=== PATIENT | male | born 1965 | race Caucasian/White ===

== ENCOUNTER → 2019-03-31 13:52 | Outpatient (CLI) | payer BC, MEDICARE ==
[2010-02-06 11:32] VITALS: BMI 29.5
== END | disposition home or self-care (01) ==
LOC: D.NM 13:52
PROVIDERS: ATTEND Internal Medicine Gastroenterology
DX: R10.11 Right upper quadrant pain (principal); R12 Heartburn; R19.7 Diarrhea, unspecified; R11.2 Nausea with vomiting, unspecified

== ENCOUNTER → 2019-06-05 15:46 | Outpatient (CLI) | payer BC, MEDICARE ==
[2010-02-06 11:32] VITALS: BMI 29.5
[~2019-06-05 15:46] MED LIST: CARAFATE1 G PO; COZAAR25 MG PO; EFFEXOR XR150 MG PO; FLAGYL500 MG PO; FLOMAX0.4 MG PO; FLORAJEN3 CAPS460 MG PO; LEVAQUIN750 MG PO; NORVASC2.5 MG PO; OMEPRAZOLE20 M1 PO; RESTORIL15 MG PO; RESTORIL7.5 MG PO; SEROQUEL25 MG PO
[2019-06-08 13:21] VITALS: BMI 27.6
== END | disposition home or self-care (01) ==
LOC: D.CT 15:46
PROVIDERS: ATTEND Internal Medicine Gastroenterology
DX: K52.9 Noninfective gastroenteritis and colitis, unspecified (principal)

== ENCOUNTER 2019-06-07 15:38 | Inpatient (IN) | payer BC, MEDICARE ==
[~2019-06-07] VITALS: Ht 175.3 cm; Wt 84.8 kg
[2019-06-07] MEDS ORDERED: CARAFATE1 G PO (15:49)
[2019-06-07] MEDS ORDERED: OMEPRAZOLE20 M1 PO (15:49)
[2019-06-07] MEDS ORDERED: SEROQUEL25 MG PO (15:50)
[2019-06-07] MEDS ORDERED: COZAAR25 MG PO (15:50)
[2019-06-07] MEDS ORDERED: NORVASC2.5 MG PO (15:50)
[2019-06-07] MEDS ORDERED: RESTORIL7.5 MG PO (15:51)
[2019-06-07] MEDS ORDERED: FLOMAX0.4 MG PO (15:52)
[2019-06-07] MEDS ORDERED: EFFEXOR XR150 MG PO (15:53)
[2019-06-07] MEDS ORDERED: RESTORIL15 MG PO (15:54)
--- NOTE | 2019-06-07 16:14 | NUR ---
DR. LEYVA'S TOWER HOIST OPERATOR HERE TO SEE PT.
[2019-06-07 16:49] LABS: APPEARANCE CLEAR (CLEAR); BILIRUBIN NEGATIVE (NEGATIVE); COLOR YELLOW (YELLOW); GLUCOSE NEGATIVE (NEGATIVE); KETONE NEGATIVE (NEGATIVE); NITRITE NEGATIVE (NEGATIVE); PROTEIN NEGATIVE (NEGATIVE); SPECIFIC GRAVITY 1.015 (1.005-1.020); UROBILINOGEN NORMAL (NORMAL)
[2019-06-07 16:50] LABS: BACTERIA FEW /hpf (NEGATIVE); RED CELLS - URINE 0-5 /hpf (0-5); WHITE CELLS - URINE OCC /hpf (NEGATIVE)
[2019-06-07 17:03] LABS: BASOPHILS 0.4 % (0-2); HEMATOCRIT 42.3 % (42.0-54.0); HEMOGLOBIN 14.1 g/dL (13.5-17.5); IMMATURE GRANULOCYTES 0.1 % (0-5); LYMPHOCYTES 33.9 % (15-50); MCH 29.2 pg (26.0-34.0); MCHC 33.3 g/dL (31.0-37.0); MCV 87.6 fL (80.0-100.0); MEAN PLATELET VOLUME 10.3 fL (7.4-10.4); MONOCYTES 7.1 % (2-11); NEUTROPHILS 55.5 % (40-80); PLATELET COUNT 237 10x3/uL (130-400); RBC 4.83 10x6/uL (4.20-6.10); RDW 13.2 % (11.5-14.5); WBC 7.9 10x3/uL (4.8-10.8)
[2019-06-07 17:08] LABS: APTT 26.6 SECONDS (22.8-39.4); INR 1.03 (0.85-1.17)
--- NOTE | 2019-06-07 17:09 | NUR ---
ATTEMPED TO CALL REPORT AT EXT [phone] X 1. ON HOLD 5 MINS. WILL TRY AGAIN.
[2019-06-07 17:11] LABS: ALBUMIN 3.8 g/dL (3.4-5.0); ALKALINE PHOSPHATASE 90 U/L (46-116); ALT (SGPT) 20 U/L (10-68); AMYLASE - SERUM 71 U/L (25-115); BILIRUBIN - TOTAL 0.66 mg/dL (0.2-1.3); CALC OSMOLALITY 282 mosm/kg (275-300); CALCIUM 8.7 mg/dL (8.5-10.1); CARBON DIOXIDE 29.9 mmol/L (21.0-32.0); CHLORIDE - SERUM 105 mmol/L (98-107); CREATININE - SERUM 0.8 mg/dL (0.6-1.3); GLUCOSE 92 mg/dL (74-106); LIPASE 140 U/L (73-393); POTASSIUM - SERUM 3.6 mmol/L (3.5-5.1); PROTEIN - SERUM 7.2 g/dL (6.4-8.2); SODIUM 142 mmol/L (136-145); UREA NITROGEN 12 mg/dL (7-18); eGFR NON AFRICAN AMERICAN > 90 mL/min (90-120)
--- NOTE | 2019-06-07 17:19 | NUR ---
NURSE TIED UP, BUT RN, ROMULO TOOK REPORT AT 1719.
--- NOTE | 2019-06-07 17:30 | NUR ---
PT ARRIVES TO ROOM VIA WHEELCHAIR. PT IS AAO X 4. PT DENIES PRESENCE OF BLOOD IN STOOL. BS ACTIVE X 4. PT STATES THAT WHEN HE BURPS HE CAN "TASTE THE POOP". PT INFORMED OF NPO STATUS. PT VERBALIZES UNDERSTANDING. PT DENIES PRESENCE OF DYSPNEA/SOB/N/V/PAIN AT THIS TIME. PT TO HAVE BRING HOME CPAP. VANCOMYCIN INFUSING TO LEFT AC WITHOUT DIFFICULTY. PT DENIES FURTHER NEEDS. BED IS IN THE LOWEST POSITION. CALL LIGHT AND BEDSIDE TABLE ARE WITHIN REACH. SIDE RAILS X 2. WILL CONT TO MONITOR.
--- NOTE | 2019-06-07 17:35 | MORECARE ---
CASE MANAGEMENT DISCHARGE SUMMARY PATIENT: OSCAR MARROQUIN UNIT: [id number] ADM DATE: 06/07/19 AGE: 53 : 65 SEX: M ROOM/BED: D.2228 AUTHOR: RUPERT NELSON PHYSICIAN: REFERRING PHYSICIAN: FUNMILAYO FREGOSO MD DATE OF SERVICE: 06/07/19 Discharge Plan Patient Name: OSCAR MARROQUIN [facility] [facility] 1965 Planned Disposition: Home or Self Care Anticipated Discharge Date: 06/09/19 Discharge Date: Expected LOS: 2 Initial Reviewer: [email or web address] Initial Review Date: 06/07/2019 Generated: 06/07/19 6:35 pm DCPIA - Discharge Planning Initial Assessment Updated by [email or web address]: Annabel Salazar on 06/07/19 5:33 pm * Is the patient Alert and Oriented? Yes * How many steps to enter\exit or inside your home? * PCP Dr. Jean [facility] * [facility] * Preadmission Environment Home with Family * ADLs Independent * Equipment CPAP * List name and contact numbers for known caregivers / representatives who currently or will assist patient after discharge: Aura Marroquin - [facility] - [phone] * Verbal permission to speak to the caregivers and representatives has been obtained from the patient. Yes * Community resources currently utilized None * Additional services required to return to the preadmission environment? No * Can the patient safely return to the preadmission environment? Yes * Has this patient been hospitalized within the prior 30 days at any hospital? No Patient Name: OSCAR MARROQUIN Page [id number] at 1735 All edits/amendments must be made on the electronic document DICTATION DATE: 06/07/191734 PICKER OPERATOR: JAYDEN 06/07/191734 RPT#: [id number] UT DATE: STATUS: ADM IN [facility] [address] [place] [address] END OF REPORT
[2019-06-07 17:42] VITALS: BP 116/84; BMI 27.6
--- NOTE | 2019-06-07 17:43 | MORECARE ---
CASE MANAGEMENT DISCHARGE SUMMARY PATIENT: OSCAR MARROQUIN UNIT: [id number] ADM DATE: 06/07/19 AGE: 53 : 65 SEX: M ROOM/BED: D.2228 AUTHOR: OMARDOC PHYSICIAN: REFERRING PHYSICIAN: FUNMILAYO FREGOSO MD DATE OF SERVICE: 06/07/19 Discharge Plan Patient Name: OSCAR MARROQUIN Facility: [facility]:[place] : 1965 Planned Disposition: Home or Self Care Anticipated Discharge Date: 06/09/19 Discharge Date: Expected LOS: 2 Initial Reviewer: [email or web address] Initial Review Date: 06/07/2019 Generated: 06/07/19 6:42 pm DCP- Discharge Planning Updated by [email or web address]: Annabel Salazar on 06/07/19 4:[address] DC PLAN: Return home with his independently. ANTICIPATED DC NEEDS: Denied known dc needs. CM met with patient to complete initial dc planning assessment. CM educated patient on the CM role and verbal consent given by patient to complete assessment. CM verified patient's address, phone number, and emergency contact phone numbers. Patient lives at home independently with his . At discharge patient plans to return home and feels this is a safe discharge. CM discussed availability of home health, rehab services, and medical equipment. Patient denied known discharge needs at this time. Transportation provider at discharge will be his . CM will continue to follow and will assist as needed with dc plans/needs. Annabel Salazar RN, [facility] DCPIA - Discharge Planning Initial Assessment Updated by [email or web address]: Annabel Salazar on 06/07/19 5:33 pm * Is the patient Alert and Oriented? Yes * How many steps to enter\exit or inside your home? * PCP Dr. Jean [facility] * [facility] * Preadmission Environment Home with Family * ADLs Independent * Equipment CPAP * List name and contact numbers for known caregivers / representatives who currently or will assist patient after discharge: Aura Marroquin - Spouse - [phone] * Verbal permission to speak to the caregivers and representatives has been obtained from the patient. Yes * Community resources currently utilized None * Additional services required to return to the preadmission environment? No * Can the patient safely return to the preadmission environment? Yes * Has this patient been hospitalized within the prior 30 days at any hospital? No Last DP export: 06/07/19 4:35 Patient Name: OSCAR MARROQUIN Page [id number] at 1743 All edits/amendments must be made on the electronic document DICTATION DATE: 06/07/191741 INDUSTRIAL PHARMACIST: JAYDEN 06/07/191741 RPT#: [id number] DC DATE: STATUS: ADM IN [facility] [address] [place] [address] END OF REPORT
--- NOTE | 2019-06-07 20:00 | NUR ---
ALERTT SITTING UP IN BED, REPORT ABD PAIN 7 OUT OF 10, MORPHINE GIVEN ORDERED, SEE SHIFT ASSESSMENT, CALL LIGHT IN REACH
[2019-06-07 20:38] VITALS: BP 138/73
[2019-06-08 01:26] VITALS: BP 154/74
[2019-06-08 04:41] VITALS: BP 125/80
[2019-06-08 05:32] LABS: BASOPHILS 0.4 % (0-2); EOSINOPHILS 4.3 % (0-7); HEMATOCRIT 43.1 % (42.0-54.0); HEMOGLOBIN 14.2 g/dL (13.5-17.5); IMMATURE GRANULOCYTES 0.4 % (0-5); LYMPHOCYTES 32.5 % (15-50); MCH 29.2 pg (26.0-34.0); MCHC 32.9 g/dL (31.0-37.0); MCV 88.5 fL (80.0-100.0); MEAN PLATELET VOLUME 10.8 fL (7.4-10.4); MONOCYTES 7.6 % (2-11); NEUTROPHILS 54.8 % (40-80); PLATELET COUNT 234 10x3/uL (130-400); RBC 4.87 10x6/uL (4.20-6.10); RDW 13.3 % (11.5-14.5)
[2019-06-08 05:48] LABS: ALBUMIN 3.6 g/dL (3.4-5.0); ALKALINE PHOSPHATASE 87 U/L (46-116); ALT (SGPT) 18 U/L (10-68); BILIRUBIN - TOTAL 0.86 mg/dL (0.2-1.3); CALC OSMOLALITY 280 mosm/kg (275-300); CALCIUM 8.8 mg/dL (8.5-10.1); CARBON DIOXIDE 28.7 mmol/L (21.0-32.0); CHLORIDE - SERUM 106 mmol/L (98-107); CREATININE - SERUM 0.9 mg/dL (0.6-1.3); GLUCOSE 83 mg/dL (74-106); POTASSIUM - SERUM 4.1 mmol/L (3.5-5.1); SODIUM 142 mmol/L (136-145); UREA NITROGEN 10 mg/dL (7-18); eGFR NON AFRICAN AMERICAN > 90 mL/min (90-120)
--- NOTE | 2019-06-08 07:41 | NUR ---
PT IS RESTING IN BED WITH EYES OPEN. RESPIRATIONS ARE EVEN AND UNLABORED. PT IS AAO X 4. PIV TO LEFT AC INFUSING WITHOUT DIFFICULTY. PT DENIES PRESENCE OF N/V/PAIN AT THIS TIME. BS ACTIVE X 4. PT REPORTS TENDERNESS TO ABDOMEN UPON PALPATION. PT REPORTS THAT HE IS PASSING GAS WITHOUT DIFFICULTY/PAIN. BED IS IN THE LOWEST POSITION. CALL LIGHT AND BEDSIDE TABLE ARE WITHIN REACH. SIDE RAILS X 2. PT DENIES FURTHER NEEDS. WILL CONT TO MONITOR.
[2019-06-08 08:43] VITALS: BP 83/44
[2019-06-08 12:54] VITALS: BP 117/78
[2019-06-08 13:21] VITALS: Ht 175.3 cm; Wt 84.8 kg
--- NOTE | 2019-06-08 18:42 | NUR ---
IV DCD FROM LEFT AC WITH CATH TIP INTACT.IV RESITED TO RIGHT FOREARM X1 STICK USING ASEPTIC TECH,22G.
[2019-06-08 18:45] VITALS: BP 141/82
[2019-06-08 20:00] VITALS: BP 144/83
--- NOTE | 2019-06-08 20:00 | NUR ---
ALERT RESTING IN BED, REQUESTING PAIN MEDICATION, MORPHINE GIVEN ORDERED, SEE SHIFT ASSESSMENT, CALL ELVIN REAL
[2019-06-09 04:00] VITALS: BP 130/84
[2019-06-09 05:44] LABS: BASOPHILS 0.4 % (0-2); HEMOGLOBIN 14.2 g/dL (13.5-17.5); IMMATURE GRANULOCYTES 0.2 % (0-5); LYMPHOCYTES 25.2 % (15-50); MCV 87.9 fL (80.0-100.0); MEAN PLATELET VOLUME 10.6 fL (7.4-10.4); MONOCYTES 7.4 % (2-11); NEUTROPHILS 62.8 % (40-80); PLATELET COUNT 250 10x3/uL (130-400); RBC 4.89 10x6/uL (4.20-6.10); RDW 13.4 % (11.5-14.5); WBC 8.6 10x3/uL (4.8-10.8)
[2019-06-09 06:26] LABS: ALBUMIN 3.7 g/dL (3.4-5.0); ALKALINE PHOSPHATASE 87 U/L (46-116); ALT (SGPT) 20 U/L (10-68); BILIRUBIN - TOTAL 1.59 mg/dL (0.2-1.3); CALC OSMOLALITY 280 mosm/kg (275-300); CALCIUM 8.9 mg/dL (8.5-10.1); CHLORIDE - SERUM 106 mmol/L (98-107); CREATININE - SERUM 0.8 mg/dL (0.6-1.3); GLUCOSE 95 mg/dL (74-106); POTASSIUM - SERUM 3.6 mmol/L (3.5-5.1); PROTEIN - SERUM 6.8 g/dL (6.4-8.2); SODIUM 142 mmol/L (136-145); VANCOMYCIN - TROUGH 7.8 ug/mL (10.0-20.0); eGFR NON AFRICAN AMERICAN > 90 mL/min (90-120)
[2019-06-09 06:29] LABS: UREA NITROGEN 7 mg/dL (7-18)
[2019-06-09 08:47] VITALS: BP 149/88
--- NOTE | 2019-06-09 09:00 | NUR ---
ALERT AND ORIENTED X4. UP ADLIB WITH GENERALIZED ABDOMINAL PAIN. BOWEL SOUNDS NOTED X4 WITH GENERALIZED TENDRNESS ON PALPATION. NORCO GIVEN FOR PAIN AND EFFECTIVE. ENCOURAGED TO USE CALL LIGHT FOR ASSSIT. HRRR AND LUNGS CTA.
[2019-06-09 13:13] VITALS: BP 131/94
[2019-06-09 16:57] VITALS: BP 137/86
[2019-06-09 20:00] VITALS: BP 154/85
[2019-06-10] VITALS: BP 127/79
--- NOTE | 2019-06-10 01:50 | NUR ---
I have reviewed this patient and I concur with the Shift Assessment completed by the Licensed Practical Nurse today this shift.
[2019-06-10 04:00] VITALS: BP 136/61
[2019-06-10 05:16] LABS: BASOPHILS 0.3 % (0-2); EOSINOPHILS 5.5 % (0-7); HEMATOCRIT 41.4 % (42.0-54.0); HEMOGLOBIN 13.6 g/dL (13.5-17.5); IMMATURE GRANULOCYTES 0.1 % (0-5); LYMPHOCYTES 34.8 % (15-50); MCH 29.2 pg (26.0-34.0); MCHC 32.9 g/dL (31.0-37.0); MCV 88.8 fL (80.0-100.0); MEAN PLATELET VOLUME 10.6 fL (7.4-10.4); MONOCYTES 7.5 % (2-11); NEUTROPHILS 51.8 % (40-80); PLATELET COUNT 234 10x3/uL (130-400); RBC 4.66 10x6/uL (4.20-6.10); RDW 13.5 % (11.5-14.5); WBC 7.3 10x3/uL (4.8-10.8)
[2019-06-10 05:41] LABS: ALBUMIN 3.4 g/dL (3.4-5.0); ALKALINE PHOSPHATASE 80 U/L (46-116); ALT (SGPT) 16 U/L (10-68); BILIRUBIN - TOTAL 1.39 mg/dL (0.2-1.3); CALC OSMOLALITY 279 mosm/kg (275-300); CALCIUM 8.9 mg/dL (8.5-10.1); CARBON DIOXIDE 27.7 mmol/L (21.0-32.0); CHLORIDE - SERUM 107 mmol/L (98-107); CREATININE - SERUM 0.9 mg/dL (0.6-1.3); GLUCOSE 85 mg/dL (74-106); POTASSIUM - SERUM 3.4 mmol/L (3.5-5.1); PROTEIN - SERUM 6.6 g/dL (6.4-8.2); SODIUM 142 mmol/L (136-145); UREA NITROGEN 7 mg/dL (7-18); VANCOMYCIN - TROUGH 17.1 ug/mL (10.0-20.0); eGFR NON AFRICAN AMERICAN > 90 mL/min (90-120)
--- NOTE | 2019-06-10 08:00 | NUR ---
ALERT AND ORIENTED X4. ABDOMEN SOFT WITH GENERALIZED TENDERNESS WITH BS NOTED X4. LUNGS CTA AND HRRR. UP ADLIB AND HAD SHOWER THIS AM. IV TO RT. F/A INFUSING AT PRESCRIBED RATE. NORCO GIVEN FOR ABDOMINAL DISCOMFORT AND EFFECTIVE. ENCOURAGED TO USE CALL LIGHT FOR ASSIST.
[2019-06-10 08:28] VITALS: BP 134/86
[2019-06-10 13:15] VITALS: BP 137/86
[2019-06-10 16:36] VITALS: BP 133/79
[2019-06-10 20:22] VITALS: BP 138/84
[2019-06-11 00:21] VITALS: BP 123/72
--- NOTE | 2019-06-11 02:08 | NUR ---
PT RESTING IN BED. EYES CLOSED. NO SIGNS OF DISTRESS. BREATHING EVEN AND UNLABORED. IV SITE RT FA DRESSING CLEAN DRY AND INTACT. NO SIGNS OF INFECTION. SKIN CLEAN DRY AND INTACT. LUNG SOUNDS CLEAR. BOWEL SOUNDS ACTIVE. WILL CONTINUE PLAN OF CARE. CALL LIGHT IN REACH. BED LOWERED AND LOCKED. BED RAILS UPX2.
[2019-06-11 04:45] VITALS: BP 120/82
[2019-06-11 06:20] LABS: BASOPHILS 0.4 % (0-2); EOSINOPHILS 6.9 % (0-7); IMMATURE GRANULOCYTES 0.1 % (0-5); LYMPHOCYTES 31.8 % (15-50); MCH 28.9 pg (26.0-34.0); MCHC 32.6 g/dL (31.0-37.0); MCV 88.8 fL (80.0-100.0); MEAN PLATELET VOLUME 10.5 fL (7.4-10.4); MONOCYTES 8.2 % (2-11); NEUTROPHILS 52.6 % (40-80); PLATELET COUNT 243 10x3/uL (130-400); RBC 4.84 10x6/uL (4.20-6.10); RDW 13.3 % (11.5-14.5); WBC 7.2 10x3/uL (4.8-10.8)
[2019-06-11 06:33] LABS: ALBUMIN 3.5 g/dL (3.4-5.0); ALKALINE PHOSPHATASE 84 U/L (46-116); ALT (SGPT) 18 U/L (10-68); BILIRUBIN - TOTAL 0.93 mg/dL (0.2-1.3); CALC OSMOLALITY 279 mosm/kg (275-300); CARBON DIOXIDE 29.4 mmol/L (21.0-32.0); CHLORIDE - SERUM 106 mmol/L (98-107); GLUCOSE 95 mg/dL (74-106); POTASSIUM - SERUM 3.5 mmol/L (3.5-5.1); PROTEIN - SERUM 6.5 g/dL (6.4-8.2); SODIUM 142 mmol/L (136-145); eGFR NON AFRICAN AMERICAN 83 mL/min (90-120)
[2019-06-11 06:34] LABS: UREA NITROGEN 4 mg/dL (7-18)
[2019-06-11 08:25] VITALS: BP 117/86
--- NOTE | 2019-06-11 09:16 | NUR ---
ALERT AND ORIENTED X4 ABDOMEN SOFT AND NONTENDER WITH BOWEL SOUNDS X4. PT HAD LOOSE BM WITH BROWN STOOL NOTED W/O OCCULT BLOOD ODOR. DENIES ANY PAIN OR DISCOMFORT THIS AM. LUNGS CTA AND ENCOURAGED AMBULATION. INSTRUCTED TO JOHN CALL LIGHT FOR ASISST.
[2019-06-11 12:38] VITALS: BP 133/79
[2019-06-11] MEDS ORDERED: FLORAJEN3 CAPS460 MG PO (13:21)
[2019-06-11] MEDS ORDERED: LEVAQUIN750 MG PO (13:21)
[2019-06-11] MEDS ORDERED: FLAGYL500 MG PO (13:22)
--- NOTE | 2019-06-11 15:44 | NUR ---
IV DISCONTINUED AND VERBALIZED UNDERSTANDING OF DISCHARGE INSTRUCTIONS. STABLE AT TIME OF DEPARTURE.
[2019-06-11 16:09] VITALS: BP 133/90
--- NOTE | 2019-06-13 08:10 | MORECARE ---
CASE MANAGEMENT DISCHARGE SUMMARY PATIENT: OSCAR MARROQUIN UNIT: [id number] ADM DATE: 06/07/19 AGE: 53 : 65 SEX: M ROOM/BED: D.2228 AUTHOR: OMARDOC PHYSICIAN: REFERRING PHYSICIAN: FUNMILAYO FREGOSO MD DATE OF SERVICE: 06/13/19 Discharge Plan Patient Name: OSCAR MARROQUIN Facility: [facility]:[place] : 1965 Planned Disposition: Home or Self Care Anticipated Discharge Date: 06/09/19 Discharge Date: 06/11/2019 Expected LOS: 2 Initial Reviewer: [email or web address] Initial Review Date: 06/07/2019 Generated: 06/13/19 9:09 am DCP- Discharge Planning Updated by [email or web address]: Annabel Salazar on 06/07/19 4:[address] DC PLAN: Return home with his independently. ANTICIPATED DC NEEDS: Denied known dc needs. CM met with patient to complete initial dc planning assessment. CM educated patient on the CM role and verbal consent given by patient to complete assessment. CM verified patient's address, phone number, and emergency contact phone numbers. Patient lives at home independently with his . At discharge patient plans to return home and feels this is a safe discharge. CM discussed availability of home health, rehab services, and medical equipment. Patient denied known discharge needs at this time. Transportation provider at discharge will be his . CM will continue to follow and will assist as needed with dc plans/needs. Annabel Salazar RN, [facility] DCPIA - Discharge Planning Initial Assessment Updated by [email or web address]: Annabel Salazar on 06/07/19 5:33 pm * Is the patient Alert and Oriented? Yes * How many steps to enter\exit or inside your home? * PCP Dr. [facility] * [facility] * Preadmission Environment Home with Family * ADLs Independent * Equipment CPAP * List name and contact numbers for known caregivers / representatives who currently or will assist patient after discharge: Aura Marroquin - Spouse - [phone] * Verbal permission to speak to the caregivers and representatives has been obtained from the patient. Yes * Community resources currently utilized None * Additional services required to return to the preadmission environment? No * Can the patient safely return to the preadmission environment? Yes * Has this patient been hospitalized within the prior 30 days at any hospital? No Last DP export: 06/07/19 4:43 Patient Name: OSCAR MARROQUIN Page [id number] at 0810 All edits/amendments must be made on the electronic document DICTATION DATE: 06/13/19808 COLOR TECHNICIAN: JAYDEN 06/13/19808 RPT#: [id number] DC DATE:06/11/19 STATUS: DIS IN [facility] [address] [place] [address] END OF REPORT
== END 2019-06-11 15:45 | disposition home or self-care (01) | DRG 392 ==
LOC: D.ER 15:38 → D.MS 16:55
PROVIDERS: Family Medicine; ADMIT Emergency Medicine; ATTEND Emergency Medicine
DX: K57.20 Diverticulitis of large intestine with perforation and abscess without bleeding (principal); R19.7 Diarrhea, unspecified; E86.0 Dehydration; I10 Essential (primary) hypertension; G89.29 Other chronic pain; M54.9 Dorsalgia, unspecified; F32.9 Major depressive disorder, single episode, unspecified; Z87.891 Personal history of nicotine dependence; G47.00 Insomnia, unspecified